=== PATIENT | male | born 2000 | race Caucasian/White ===

== ENCOUNTER 2019-07-16 11:38 | Emergency (ER) | payer SELFPAY ==
[2019-07-16 11:48] VITALS: BP 115/72; PULSE 94; RESP 16; TEMP 36.6; O2SAT 98; BMI 23.9
--- NOTE | 2019-07-16 12:50 | ED_ITS ---
Entered by Luna Palacios, acting as scribe for Brian Delcid MD HPI - Extremity Problem General: Chief complaint: Extremity Injury, Lower Stated complaint: right leg pain Time Seen by Provider: 07/16/19 12:45 Source: patient, family and RN notes reviewed Mode of arrival: ambulatory Limitations: no limitations History of Present Illness: HPI Narrative: 18 yo male presents to ED following an accidental injury to his R leg. The patient states he was cutting a pipe and his knife slipped, cutting his R leg. The cut is approximately 1 cm long. He said this happened prior to arrival. Complaint: extremity pain Onset (ago): minute(s) (45 (1200)) Pain Consistency: now resolved Location: right and lower extremity Severity scale (1-10): 1 Quality: dull Radiation: none Relieving factors: rest Exacerbating factors: walking Associated symptoms: Reports no associated symptoms; Deny chest pain, fever(s) or rash Context: other (cutting a pipe when knife slipped) Review of Systems Const: Denies: fever, chills, body aches or change in appetite Eyes: Denies: blurry vision or eye discomfort ENMT: Denies: throat pain or dental pain Card: Denies: chest pain Resp: Denies: shortness of breath GI: Denies: abdominal pain, nausea, vomiting or diarrhea : Denies: painful urination Musc: Denies: neck pain or back pain Skin/Breast: Denies: rash Neuro: Denies: headache Psych: Denies: depression Chacho/Lymph: Denies: easy bruising All/Imm: Denies: hives PFS ED PFSH: Social History Smoking and tobacco status: never smoked Physical Exam Const: COMMON NORMALS: no apparent distress, oriented x3 and healthy appearing HENMT: COMMON NORMALS: normocephalic and head/scalp atraumatic HEAD & SCALP: normocephalic and atraumatic Eye: COMMON NORMALS: PERRL and EOMs intact bilaterally PUPIL: Yes PERRL Neck/C-Spine: COMMON NORMALS: full ROM and supple Chest: COMMONS NORMALS: inspection of chest normal and palpation of chest normal Resp: COMMON NORMALS: normal respiratory effort, no retractions, no use of accessory muscles and clear to auscultation bilaterally AUSCULTATION: clear to auscultation bilaterally Cardio: COMMON NORMALS: regular rate, regular rhythm and no murmurs RATE: regular rate RHYTHM: regular rhythm GI: COMMON NORMALS: normal to inspection, nondistended, normoactive bowel sounds, soft to palpation, non-tender and no masses PALPATION: Yes soft Extremity: COMMON NORMALS: normal to inspection and full ROM Neuro: COMMON NORMALS: oriented x3, moves all extremities and no focal motor deficits Psych: COMMON NORMALS: mental status grossly normal, thought process normal and cooperative THOUGHT PROCESS: normal thought process Skin: COMMON NORMALS: no rashes or lesions noted and no wounds NARRATIVE SKIN EXAM: 1 cm minor laceration to right thigh with no tendon or muscle involvement. GENERAL SKIN EXAM: no rashes or lesions noted Procedures Laceration Laceration 1: Site: lower extremity Side (If applicable): right Size (cm): 1 Description: linear Depth: simple, single layer Pre-repair: wound explored, irrigated extensively and deep structures intact Size (cm): other (dermabond) Course Vital Signs: Vital signs: Vital Signs Temperature 97.8 F 07/16/19 11:48 Pulse Rate 94 07/16/19 11:48 Respiratory Rate 16 07/16/19 11:48 Blood Pressure 115/72 07/16/19 11:48 Pulse Oximetry 98 07/16/19 11:48 MDM - Extremity (Nontraumatic) MDM Narrative: Medical decision making narrative: Patient presents with lacerations very minor nature. Laceration was repaired with tissue adhesive. Patient updated on tetanus as well. Patient is stable for discharge and is to follow-up with primary care doctor in 3 to 5 days. Discharge Plan Discharge Patient Disposition: Home, Self-Care Clinical Impression: Laceration of leg Qualifiers: Encounter type: initial encounter Laterality: right Qualified Code(s): S81.811A - Laceration without foreign body, right lower leg, initial encounter Condition: Stable Discharge Orders: Discharge Order (Routine); Ordered 07/16/19 Ordered By: Brian Delcid Referrals: Maryanne Becerril MD [Primary Care Provider] - Discharge Diet: Advance as tolerated Discharge Activity: Resume usual activity Patient Instructions: Laceration (ED) Discharge Date/Time: 07/16/19 13:05 Coding Level of Care Code ED Chief Dispatcher Service for g Fwd Exam Comprehensive The documentation recorded by the Suzanne pineda Valerie R, accurately reflects the service I personally performed and the decisions made by me, Brian Delcid MD Jul 16, 2019 11:38
[2019-07-16] MEDS: tetanus-dipt-pertussis 0.5 mL SDV IM (13:01)
== END 2019-07-16 13:05 | disposition home or self-care (01) ==
PROVIDERS: Emergency Provider Emergency Medicine; Family Provider Pediatrics Adolescent Medicine; PCP Pediatrics Adolescent Medicine
DX: S71.111A Laceration without foreign body, right thigh, initial encounter (principal); W26.0XXA Contact with knife, initial encounter
CPT/HCPCS: 12001; 90471; 90715; 99281; 99282

== ENCOUNTER 2019-08-29 20:20 | Emergency (ER) | payer SELFPAY ==
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
[2019-08-29 20:31] VITALS: BP 154/99; PULSE 99; RESP 18; TEMP 36.1; O2SAT 100; BMI 23.9
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
[2019-08-29 20:59] VITALS: BP 145/85; PULSE 93; RESP 16; O2SAT 100
[2019-08-29] MEDS: HYDROcodone-acetaminophen 5-325 mg Tablet 1 TAB PO (20:59)
[2019-08-29 21:54] VITALS: BP 145/85; PULSE 100; RESP 18; TEMP 36.2; O2SAT 98
[2019-08-29] MEDS: amoxicillin-clav 875-125 mg Tablet 1 TAB PO (21:54)
--- NOTE | 2019-08-31 12:50 | DCPLANNER ---
security project manager had message to schedule a follow up appointment for patient with a dentist. security project manager called patient to speak with patient about getting a dentist. security project manager spoke with patient, he stated that he has dentist that he sees and that he will make an appointment.
== END 2019-08-29 21:56 | disposition home or self-care (01) ==
PROVIDERS: Emergency Provider Nurse Practitioner Family; Family Provider Pediatrics Adolescent Medicine; PCP Pediatrics Adolescent Medicine
DX: S03.2XXA Dislocation of tooth, initial encounter (principal); V59.3XXA Occupant (driver) (passenger) of pick-up truck or van injured in unspecified nontraffic accident, initial encounter
CPT/HCPCS: 12345; 70450; 70486; 99281; 99283

== ENCOUNTER → 2020-01-18 11:29 | Outpatient (BNVA) | payer SELFPAY | PROVIDERS: Family Provider Pediatrics Adolescent Medicine; PCP Pediatrics Adolescent Medicine; Visit Provider Internal Medicine | DX: J06.9 Acute upper respiratory infection, unspecified (principal) | CPT/HCPCS: 87635 ==

== ENCOUNTER 2020-02-12 07:57 | Emergency (ER) | payer SELFPAY ==
[2020-02-12 08:01] VITALS: BP 152/89; PULSE 83; RESP 18; TEMP 36.5; O2SAT 100; BMI 24.3
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
--- NOTE | 2020-02-12 08:52 | PC.NURSE ---
Patient transferred to CT per brian at 0845
[2020-02-12 10:05] VITALS: BP 120/68; O2SAT 99
[2020-02-12 10:20] VITALS: BP 120/68; PULSE 78; O2SAT 100
== END 2020-02-12 10:20 | disposition home or self-care (01) ==
PROVIDERS: Emergency Provider Nurse Practitioner Family; PCP Pediatrics Adolescent Medicine
DX: S01.311A Laceration without foreign body of right ear, initial encounter (principal); Y04.8XXA Assault by other bodily force, initial encounter
CPT/HCPCS: 12345; 70486; 99282

== ENCOUNTER → 2020-02-29 11:44 | Outpatient (BNVA) | payer OTHER, SELFPAY | PROVIDERS: PCP Pediatrics Adolescent Medicine; Visit Provider Nurse Practitioner Family | DX: Z20.828 Contact with and (suspected) exposure to other viral communicable diseases (principal) | CPT/HCPCS: 87635 ==

== ENCOUNTER → 2020-06-06 09:04 | Outpatient (BNVA) | payer OTHER, SELFPAY | PROVIDERS: PCP Pediatrics Adolescent Medicine; Visit Provider Nurse Practitioner Family | DX: Z20.828 Contact with and (suspected) exposure to other viral communicable diseases (principal) | CPT/HCPCS: 87635 ==

== ENCOUNTER → 2020-07-30 18:10 | Outpatient (BNVA) | payer BC, SELFPAY | PROVIDERS: PCP Pediatrics Adolescent Medicine; Visit Provider Nurse Practitioner | DX: S60.211A Contusion of right wrist, initial encounter (principal); X58.XXXA Exposure to other specified factors, initial encounter; F17.290 Nicotine dependence, other tobacco product, uncomplicated; Z71.89 Other specified counseling | CPT/HCPCS: 73110 ==

== ENCOUNTER 2022-06-24 18:16 | Emergency (ER) | payer OTHER, SELFPAY ==
[2022-06-24 18:51] VITALS: BP 144/83; PULSE 90; RESP 16; TEMP 36.8; O2SAT 98; BMI 25.0
[2022-06-24 20:03] LABS: Basophils % 0.2 %; Eosinophils # 0.2 10^3/uL (0.0-0.8); Eosinophils % 2.1 %; Hemoglobin 15.4 g/dL (11.7-16.6); Lymphocytes # 1.8 10^3/uL (0.8-4.8); Lymphocytes % 21.6 %; Mean Corpuscular HGB Conc 32.8 g/dL (30.0-36.0); Mean Corpuscular Hemoglobin 30.3 pg (28.0-34.0); Mean Corpuscular Volume 92.3 fl (80-94); Mean Platelet Volume 10.4 fL (7.4-10.4); Monocytes # 0.6 10^3/uL (0.2-0.9); Monocytes % 7.6 %; Neutrophils # 5.67 10^3/uL (1.8-7.7); Neutrophils % 68.4 %; Nucleated Red Blood Cells % 0 %; Platelet Count 232 10^3/cmm (130-400); Red Blood Count 5.09 10^6/uL (4.1-5.3); Red Cell Distribution Width 11.8 % (12.1-15.1); White Blood Count 8.3 10^3/uL (4.0-10.0)
--- NOTE | 2022-06-24 20:12 | W.ED.ABDPA2 ---
HPI - Abdominal Pain General: Chief Complaint: Abdominal Pain Stated Complaint: right sided abd pain Time Seen by Provider: 06/24/22 20:12 History of Present Illness: Mr. Cortes is a 21-year-old male without significant past medical history presenting to the emergency department for abdominal pain. Reports a few day history of decreased p.o., nausea, diarrhea however developed today tenderness in the right lower quadrant. He pinpoints pain there and in the right midabdomen. Sharp and aching in nature. Intermittent however the other systems persist. Denies other signs of systemic illness. No urinary symptoms or testicular pain. No other specific changes in health, exacerbating, or alleviating factors identified. Onset (ago): day(s) Pain Consistency: constant Location: Periumbilical Severity: moderate Quality: aching and sharp Radiation: none Migration to: no migration Exacerbating factors: nothing Relieving factors: nothing Associated Symptoms: Reports diarrhea, nausea and poor appetite; Denies dysuria, fever(s), hematuria and hematemesis Review of Systems General: Reports: 10 or more systems reviewed and unremarkable except in HPI and below Const: Denies: fever(s) GI: Reports: nausea and diarrhea; Denies: hematemesis : Denies: dysuria or hematuria PFSH ED PFSH: Medical History Acute costochondritis Exposure to COVID-19 virus Social History Smoking and tobacco status: current every day smoker (vape) e-cigarettes Alcohol intake: current Alcohol intake frequency: holidays/special occasions only Marital status: Single Number of children: 0 Current occupational status: employed Physical Exam Const: COMMON NORMALS: alert GENERAL APPEARANCE: cooperative and well developed HENMT: COMMON NORMALS: normocephalic and atraumatic HEAD & SCALP: normocephalic and atraumatic Eye: COMMON NORMALS: conjunctivae normal CONJUNCTIVA: Yes conjunctivae normal SCLERA: sclerae normal Neck/C-Spine: COMMON NORMALS: supple GENERAL: Yes trachea midline Resp: COMMON NORMALS: clear to auscultation bilaterally EFFORT & INSPECTION: Yes able to speak in complete sentences AUSCULTATION: clear to auscultation bilaterally Cardio: COMMON NORMALS: regular rate and regular rhythm RATE: regular rate RHYTHM: regular rhythm GI: COMMON NORMALS: Soft to palpation PALPATION: Yes Soft to palpation, Yes Tenderness to palpation present (GI), No Guarding due to palpation present (GI) and No Rigid due to palpation Extremity: GENERAL: Yes normal exam except as noted and No edema Neuro: COMMON NORMALS: moves all extremities SENSORIUM/ORIENTATION: Yes alert and No Orientation impaired Psych: COMMON NORMALS: mental status grossly normal and Normal thought process present THOUGHT PROCESS: Normal thought process present Course Vital Signs: Vital signs: Vital Signs Temperature 98.2 F 06/24/22 18:51 Pulse Rate 95 06/24/22 23:12 Respiratory Rate 16 06/24/22 23:12 Blood Pressure 158/91 06/24/22 23:12 Pulse Oximetry 100 06/24/22 23:12 Oxygen Delivery Me thod 06/24/22 18:51 MDM - Abdominal Pain Medical Decision Making 21-year-old gentleman presenting to the emergency department with abdominal symptoms. Exam as above. Patient is nontoxic. No evidence of acute surgical abdomen. Labs with no significant hematologic abnormality or metabolic abnormality. Urinalysis with mild abnormalities though no convincing evidence of urinary tract infection. CT with evidence of enteritis and hepatic steatosis. Patient improved with IV fluids and able to tolerate p.o. intake. Mostly etiology of patient symptoms is enteritis. The results of ED evaluation were discussed with the patient including prescriptions and/or symptomatic cares (if applicable) including appropriate and responsible use, followup plan, and return precautions. The patient verbalized understanding and felt safe for discharge. Medical Records I reviewed the patient's medical records. Lab Data I reviewed the patient's lab results. 06/24/22 19:52 06/24/22 19:52 Labs/Radiology: Radiology Impressions Abdomen/Pelvis CT 06/24/22 21:09 IMPRESSION: 1. Prominent fluid in the small bowel without dilation suggestive of an enteritis in the appropriate clinical setting. 2. Hepatic steatosis. Laboratory Results WBC 8.3 10^3/uL (4.0-10.0) 06/24/22 19:52 RBC 5.09 10^6/uL (4.1-5.3) 06/24/22 19:52 Hgb 15.4 g/dL (11.7-16.6) 06/24/22 19:52 Hct 47.0 % (42.0-52.0) 06/24/22 19:52 MCV 92.3 fl (80-94) 06/24/22 19:52 MCH 30.3 pg (28.0-34.0) 06/24/22 19:52 MCHC 32.8 g/dL (30.0-36.0) 06/24/22 19:52 RDW 11.8 % (12.1-15.1) L 06/24/22 19:52 Plt Count 232 10^3/cmm (130-400) 06/24/22 19:52 MPV 10.4 fL (7.4-10.4) 06/24/22 19:52 Neut % (Auto) 68.4 % 06/24/22 19:52 Lymph % (Auto) 21.6 % 06/24/22 19:52 [place] % (Auto) 7.6 % 06/24/22 19:52 Eos % (Auto) 2.1 % 06/24/22 19:52 Baso % (Auto) 0.2 % 06/24/22 19:52 Neut # (Auto) 5.67 10^3/uL (1.8-7.7) 06/24/22 19:52 Lymph # (Auto) 1.8 10^3/uL (0.8-4.8) 06/24/22 19:52 [place] # (Auto) 0.6 10^3/uL (0.2-0.9) 06/24/22 19:52 Eos # (Auto) 0.2 10^3/uL (0.0-0.8) 06/24/22 19:52 Baso # (Auto) 0.0 10^3/uL (0.0-0.1) 06/24/22 19:52 Nucleated RBC % (auto) 0 % 06/24/22 19:52 Nucleated RBCs # 0.0 /100WBC 06/24/22 19:52 Sodium 141 mmol/L (136-145) 06/24/22 19:52 Potassium 3.7 mmol/L (3.5-5.1) 06/24/22 19:52 Chloride 102 mmol/L (98-107) 06/24/22 19:52 Carbon Dioxide 29 mmol/L (22-29) 06/24/22 19:52 Anion Gap 13.7 (5-19) 06/24/22 19:52 BUN 13 mg/dL (6-20) 06/24/22 19:52 Creatinine 1.1 mg/dL (0.7-1.2) 06/24/22 19:52 GFR Calculation 83.7 mL/min (90-130) L 06/24/22 19:52 Glucose 95 mg/dL (65-115) 06/24/22 19:52 Calculated Osmolality 292 mOsm/kg (285-295) 06/24/22 19:52 Calcium 9.7 mg/dL (8.5-10.5) 06/24/22 19:52 Total Bilirubin 0.7 mg/dL (0.15-1.2) 06/24/22 19:52 AST 14 U/L (0-40) 06/24/22 19:52 ALT 15 U/L (0-41) 06/24/22 19:52 Alkaline Phosphatase 79 U/L (40-130) 06/24/22 19:52 Total Protein 7.1 g/dL (6.6-8.7) 06/24/22 19:52 Albumin 5.0 g/dL (3.5-5.2) 06/24/22 19:52 Globulin 2.1 g/dL (1.3-4.6) 06/24/22 19:52 Lipase 21 U/L (13-60) 06/24/22 19:52 Urine Color Yellow (Yellow) 06/24/22 21:05 Urine Appearance Hazy (CLEAR) A 06/24/22 21:05 Urine pH 7 (5-7) 06/24/22 21:05 Ur Specific [place]shaw 1.015 (1.005-1.030) 06/24/22 21:05 Urine Protein Neg (Negative) 06/24/22 21:05 Urine Glucose (UA) Norm (Normal) 06/24/22 21:05 Urine Ketones 1+ (Negative) H 06/24/22 21:05 Urine Blood Neg (Negative) 06/24/22 21:05 Urine Nitrate Negative (Negative) 06/24/22 21:05 Urine Bilirubin Neg (Negative) 06/24/22 21:05 Urine Urobilinogen 1 mg/dL (Negative) H 06/24/22 21:05 Ur Leukocyte Esterase Trace (Negative) H 06/24/22 21:05 Urine RBC 0-4 /hpf (0-2) H 06/24/22 21:05 Urine WBC 0-4 /hpf (0-5) H 06/24/22 21:05 Ur Squamous Epith Cells 0-4 /hpf (0-5) H 06/24/22 21:05 Amorphous Sediment 2+ /hpf 06/24/22 21:05 Urine Bacteria None /hpf (NONE) 06/24/22 21:05 Discharge Plan Discharge Patient Disposition: Home Clinical Impression: Abdominal pain, Enteritis Condition: Stable Prescriptions: New ondansetron 4 mg tablet,disintegrating 4 mg PO Q8H PRN (Reason: nausea and vomiting) Qty: 15 0RF oxycodone 5 mg tablet 5 mg PO Q4H PRN (Reason: pain) Qty: 4 0RF No Action naproxen [EC-Naproxen] 500 mg tablet,delayed release (DR/EC) 500 mg PO BID Qty: 30 1RF Rx Instructions: Can take with food twice a day Discharge Orders: Discharge ED (Routine); Ordered 06/24/22 Ordered By: Ignacio Hooper Discharge Diet: Advance as tolerated and Clear Liquid Discharge Activity: Increase activity as tolerated Patient Instructions: Abdominal Pain (ED), Enteritis (ED), Opioid Safety Activity Restrictions/Additional Instructions: Thank you for visiting the emergency department. You were seen and evaluated for abdominal pain associated with other GI symptoms. The most likely cause of your symptoms is related to viral infection/enteritis. I would expect improvement in the next few days. Please follow-up with a primary care provider. You may use [id number] medications such as acetaminophen and ibuprofen for pain however please do not exceed the daily recommended dosage as listed on the packaging and please keep in mind that many namebrand medications contain the same active ingredients. Please avoid these medications if previously instructed to do so by another physician due to other underlying medical condition. Return to the emergency department for uncontrolled pain, inability to tolerate oral intake, fevers, blood in stool, or anything else that you are concerned about and feel needs emergency department evaluation. Stand Alone Forms: Work/School Release Coding Level of Care Code ED [employer] for Alyce Hart
[2022-06-24 20:17] VITALS: O2SAT 98
[2022-06-24 20:24] LABS: Alanine Aminotransferase 15 U/L (0-41); Alkaline Phosphatase 79 U/L (40-130); Anion Gap 13.7 (5-19); Aspartate Amino Transferase 14 U/L (0-40); Blood Urea Nitrogen 13 mg/dL (6-20); Calcium 9.7 mg/dL (8.5-10.5); Carbon Dioxide 29 mmol/L (22-29); Chloride 102 mmol/L (98-107); Globulin 2.1 g/dL (1.3-4.6); Glomerular Filtration Rate 83.7 mL/min (90-130); Glucose 95 mg/dL (65-115); Lipase 21 U/L (13-60); Osmolality Calculated 292 mOsm/kg (285-295); Potassium 3.7 mmol/L (3.5-5.1); Sodium 141 mmol/L (136-145); Total Bilirubin 0.7 mg/dL (0.15-1.2); Total Protein 7.1 g/dL (6.6-8.7)
[2022-06-24 20:30] VITALS: O2SAT 97
[2022-06-24] MEDS: sodium chloride 0.9% 1,000 ML 999 ML IV (20:35)
--- NOTE | 2022-06-24 21:09 | CTR_ITS ---
PROCEDURE INFORMATION: Exam: CT Abdomen And Pelvis With Contrast Exam date and time: 06/24/2022 10:00 PM Age: 21 years old Clinical indication: Abdominal pain; Localized; Right lower quadrant (rlq); Additional info: Rlq pain, eval appy TECHNIQUE: Imaging protocol: Computed tomography of the abdomen and pelvis with contrast. Radiation optimization: All CT scans at this facility use at least one of these dose optimization techniques: automated exposure control; mA and/or kV adjustment per patient size (includes targeted exams where dose is matched to clinical indication); or iterative reconstruction. Contrast material: OMNI 350; Contrast volume: 95 ml; Contrast route: INTRAVENOUS (IV); Other protocol: This patient has received 0 known CTs and 0 known cardiac nuclear medicine studies in the 12 months prior to the current study. COMPARISON: US renal BI* [id number] 02/18/2018 2:18 PM RADIATION DOSE METRICS: Total DLP (mGy-cm): 415.87 FINDINGS: Liver: Hepatic steatosis. Gallbladder and bile ducts: Normal. No calcified stones. No ductal dilation. Pancreas: Normal. No ductal dilation. Spleen: Normal. No splenomegaly. Adrenal glands: Normal. No mass. Kidneys and ureters: Normal. No hydronephrosis. Stomach and bowel: Prominent fluid in the small bowel without dilation suggestive of an enteritis in the appropriate clinical setting. Appendix: No evidence of appendicitis. Intraperitoneal space: Unremarkable. No free air. No significant fluid collection. Vasculature: Unremarkable. No abdominal aortic aneurysm. Lymph nodes: Unremarkable. No enlarged lymph nodes. Urinary bladder: Unremarkable as visualized. Reproductive: Unremarkable as visualized. Bones/joints: Unremarkable. No acute fracture. Soft tissues: Unremarkable. CT/CT abdomen pelvis w con* [id number] IMPRESSION: 1. Prominent fluid in the small bowel without dilation suggestive of an enteritis in the appropriate clinical setting. 2. Hepatic steatosis.
[2022-06-24 21:43] LABS: Add Urine Culture? No; Add Urine Microscopic? YES; Amorphous Sediment Urine 2+ /hpf; Bilirubin Urine Neg (Negative); Blood Urine Neg (Negative); Glucose Urine UA Norm (Normal); Ketones Urine 1+ (Negative); Leukocyte Esterase Urine Trace (Negative); Nitrate Urine Negative (Negative); Protein Urine Neg (Negative); RBC Urine 0-4 /hpf (0-2); Specific Gravity, Urine 1.015 (1.005-1.030); Squamous Epithelial Cell Urine 0-4 /hpf (0-5); Urine Appearance Hazy (CLEAR); Urine Color Yellow (Yellow); Urobilinogen Urine 1 mg/dL (Negative); WBC Urine 0-4 /hpf (0-5); pH Urine 7 (5-7)
[2022-06-24] MEDS: iohexol 350 mg/mL 500 mL Btl (per mL) IV (22:02)
[2022-06-24 23:12] VITALS: BP 158/91; PULSE 95; RESP 16; O2SAT 100
== END 2022-06-24 23:13 | disposition home or self-care (01) ==
PROVIDERS: Emergency Medicine; Emergency Provider Emergency Medicine
DX: K52.9 Noninfective gastroenteritis and colitis, unspecified (principal); F17.290 Nicotine dependence, other tobacco product, uncomplicated
CPT/HCPCS: 36415; 74177; 80053; 81001; 83690; 85025; 96360; 99285; J7030; Q9967

== ENCOUNTER 2024-02-02 07:41 | Day surgery (SDC) | payer OTHER, SELFPAY ==
[2024-02-02 08:35] VITALS: BP 133/80; PULSE 71; RESP 16; TEMP 36.6; O2SAT 97; BMI 29.7
[2024-02-02] MEDS: sodium chloride 0.9% 1,000 ML 30 ML IV (08:35)
--- NOTE | 2024-02-02 09:00 | P.ANESASSM_ITS ---
Pre-Anesthetic Assessment Height/Weight: Height 5 ft 8 in Weight 196 lb Temp Pulse Resp BP Pulse Ox O2 Del Method 97.9 F 71 16 133/80 97 Room Air 02/02/24 08:35 02/02/24 08:35 02/02/24 08:35 02/02/24 08:35 02/02/24 08:35 02/02/24 08:35 Operation Date: 02/02/24 09:00 Proposed Procedures p EGD 04265, M94.0(Not Applicable) - Elvin Nicolas MD Last intake: Intake Last Liquid Date 02/01/24 Last Liquid Time 22:00 Last Solid Date 02/01/24 Last Solid Time 20:00 Social No alcohol and No tobacco Exam alert, oriented x 3, clear to auscultation bilaterally and regular rate & rhythm Airway Submandibular: within normal limits Cervical ROM: within normal limits Mallampati: Class I Dentition: full Anesthetic Plan ASA status: 2 Anesthesia: MAC Other: No prior issues with anesthesia NPO since midnight GERD on pantoprazole Alpha gal, anesthesia team aware METs greater than 4 Plan for MAC anesthesia Medications/Allergies Home Medications Medication Instructions Recorded Confirmed Last Taken Type pantoprazole 40 mg tablet,delayed 40 mg PO BID 6 weeks #84 tabs 01/26/24 02/01/24 02/01/24 Rx release (Protonix) Allergies Allergy/AdvReac Type Severity Reaction Status Date / Time Alpha-Gal Allergy Severe Unknown Verified 02/01/24 12:06 (Bpiolmeji-Khyex-4,3-Gala Beef Containing Products Allergy Severe Unknown Verified 01/26/24 15:00 Pork/Porcine Containing Allergy Severe Unknown Verified 01/26/24 15:00 Products Milk Containing Products Allergy Mild Unknown Verified 01/26/24 15:00 (Dairy) Current Medications Generic Name Dose Route Start Last Admin Trade Name Freq PRN Reason Stop Dose Admin Sodium Chloride 1,000 mls @ 30 mls/hr 02/02/24 08:30 02/02/24 08:35 Sodium Chloride 0.9% IV 30 mls/hr .Q24H SAKINA Administration PFSH Anesthesia Medical History Acute costochondritis Exposure to COVID-19 virus Social History Smoking and tobacco/nicotine status: current every day tobacco/nicotine user e- cigarettes Alcohol intake: current Alcohol intake frequency: holidays/special occasions only Substance/Drug Use: never Marital status: Single Number of children: 0 Current occupational status: employed Data Anesthesia Cardiac Studies: No Data to Display
--- NOTE | 2024-02-02 09:14 | W.PM.OPSUD ---
Surgery/Procedure H&P Update DATE OF PROCEDURE: February 02, 2024 DATE H&P PERFORMED: 01/26/24 H&P UPDATE INFORMATION: I have reviewed H&P completed within last 30 days, I have examined patient prior to procedure and No changes to prior documentation PLANNED PROCEDURE: Operation Date: 02/02/24 09:00 Proposed Procedures p EGD [id number], M94.0(Not Applicable) - Elvin Nicolas MD
[2024-02-02 09:25] VITALS: BP 115/73; PULSE 71; RESP 16; TEMP 36.1; O2SAT 94
[2024-02-02 09:49] VITALS: BP 117/74; PULSE 90; RESP 18; O2SAT 99
--- NOTE | 2024-02-02 10:18 | ANE.PACU2 ---
Inpatient post-anesthesia follow up: Airway intact: Yes Vital signs: Temperature 97 F Pulse Rate 90 Respiratory Rate 18 Blood Pressure 117/74 Pulse Oximetry 99 Oxygen Delivery Me thod Room Air Oxygen Flow Rate Fraction of Inspir ed Oxygen Hydration adequate: Yes Nausea and vomiting: No Pain level: 1 Mental status: Baseline
== END 2024-02-02 10:18 | disposition home or self-care (01) ==
PROVIDERS: PCP Nurse Practitioner Family; Visit Provider Student in an Organized Health Care Education/Training Program
PROC: 0DJ08ZZ Inspection of Upper Intestinal Tract, Via Natural or Artificial Opening Endoscopic (ICD-10-PCS; CPT 43235; principal; 2024-02-02 09:00)
DX: M94.0 Chondrocostal junction syndrome [Tietze] (principal); K29.50 Unspecified chronic gastritis without bleeding; F17.200 Nicotine dependence, unspecified, uncomplicated; K21.9 Gastro-esophageal reflux disease without esophagitis; K92.1 Melena
CPT/HCPCS: 43239; 88305; 88342; J2704; J3010; J7030